=== PATIENT | male | born 1995 | race Caucasian/White ===

== ENCOUNTER 2019-07-21 04:02 | Emergency (ER) | payer MEDICAID ==
[~2019-07-21] VITALS: Ht 175.3 cm; Wt 66.0 kg
[2019-07-21 04:19] VITALS: BP 121/69
[2019-07-21 08:46] LABS: MONOTEST NEGATIVE (NEGATIVE)
== END 2019-07-21 10:37 | disposition home or self-care (01) ==
LOC: ER 04:02
DX: J06.9 Acute upper respiratory infection, unspecified (principal); J45.909 Unspecified asthma, uncomplicated; F12.10 Cannabis abuse, uncomplicated; F17.200 Nicotine dependence, unspecified, uncomplicated
CPT/HCPCS: 71045; 86308; 87070; 87430; 99284